=== PATIENT | female | born 1995 | race Caucasian/White ===

== ENCOUNTER 2017-04-10 22:47 | Emergency (ER) | payer OTHER ==
[~2017-04-10] VITALS: Ht 154.9 cm; Wt 86.2 kg
[2017-04-10 22:52] VITALS: BP 135/78
--- NOTE | 2017-04-10 23:00 | NUR ---
22Y/O F ANNA MENDEZ FOR [employer]. ELIDIA BURLESON MADE AWARE.
[2017-04-10] MEDS ORDERED: IBUPROFEN 800 MG TAB PO ONE (23:45)
[2017-04-10] MEDS ORDERED: IBUPROFEN 800 MG TAB ONE (23:46)
[2017-04-11 00:08] VITALS: BP 135/78
--- NOTE | 2017-04-11 00:08 | NUR ---
Patient discharged with v/s stable. Written and verbal after care instructions given and explained. Patient verbalized understanding. Police with in custody. All questions addressed prior to discharge. Advised to follow up with PMD.
== END 2017-04-11 00:08 ==
LOC: MED 22:47
DX: Z02.89 Encounter for other administrative examinations (principal); F10.129 Alcohol abuse with intoxication, unspecified
CPT/HCPCS: 99283